=== PATIENT | female | born 1960 | race Caucasian/White ===

== ENCOUNTER → 2023-11-02 13:47 | Outpatient (REF) | payer SELFPAY ==
--- NOTE | 2023-11-19 08:57 | OID.L.PAT ---
Pulmonary Nodule Pat Letter
- -
11/19/23
ANSLEY ADAME
[address]
[place], [place] [address]
Dear ANSLEY,
A pulmonary nodule was seen on an imaging study done by [facility]. This was reviewed by the [facility] Pulmonary Nodule Advisory Board and the following recommendation was made:
Recommendation: Follow up Chest CT in one year
If you have any questions, please do not hesitate to contact your primary care physician. If you are in need of a Physician, you can go to [email or web address] and click on 'Find a Provider'. Type 'Family Medicine' in the search.
Oncology Nurse Navigator
[facility]
[phone]
--- NOTE | 2023-11-19 08:57 | OID.L.REC ---
Pulmonary Nodule Follow Up
- Recommendation
11/19/23
Pulmonary Nodule Review Recommendations
Your patient, ANSLEY ADAME, had a pulmonary nodule seen on a CT Coronoary Calcium Score imaging study done on 11/02/23 in the [facility] Radiology Department. This was reviewed by the [facility] Pulmonary Nodule Advisory Board
and the following recommendation was made:
Recommendation: Follow up Chest CT in one year
If you have any questions please do not hesitate to contact us.
Sincerely,
Oncology Nurse Navigator
[facility]
[phone]
== END ==
LOC: HWRAD 13:47
PROVIDERS: ATTENDING PHYSICIAN Internal Medicine Cardiovascular Disease; FAMILY PHYSICIAN Family Medicine
DX: E78.5 Hyperlipidemia, unspecified (principal)
CPT/HCPCS: 75571

== ENCOUNTER → 2025-02-10 10:02 | Outpatient (REF) | payer MEDICARE, BC, SELFPAY | LOC: HWRAD 10:02 | PROVIDERS: ATTENDING PHYSICIAN Family Medicine | DX: R91.8 Other nonspecific abnormal finding of lung field (principal); R91.1 Solitary pulmonary nodule | CPT/HCPCS: 71250 ==